=== PATIENT | male | born 1945 | race Caucasian/White ===

== ENCOUNTER 2019-01-29 08:51 | Emergency (ER) | payer MEDICARE, OTHER ==
[~2019-01-29] VITALS: Ht 177.8 cm; Wt 196.0 kg
[~2019-01-29 08:51] MED LIST: ASPI-611 PO; CARV-50 PO; DOCU-28 PO; FLO0.4C PO; HYDR-4353 PO; LISI10TA4 PO; METF500T20 PO; MULT-342 PO; OMEP20CA11 PO; SIMV40TA PO
[2019-01-29 09:40] LABS: BASOPHILS % (AUTO) 0.4 % (0-1); EOSINOPHILS # (AUTO) 0.3 X10'3 (0-0.9); EOSINOPHILS % (AUTO) 3.8 % (0-6); HEMATOCRIT 38.2 % (42.0-52.0); HEMOGLOBIN 12.7 g/dl (14.0-17.9); LYMPHOCYTES # (AUTO) 1.6 X10'3 (1.1-4.8); LYMPHOCYTES % (AUTO) 20.7 % (21-51); MEAN CORPUSCULAR HEMOGLOBIN 31.2 PG (27.0-31.0); MEAN CORPUSCULAR HGB CONC 33.3 g/dL (33.0-36.5); MEAN CORPUSCULAR VOLUME 93.7 FL (78-98); MEAN PLATELET VOLUME 9.4 FL (7.4-10.4); MONOCYTES # (AUTO) 0.8 X10'3 (0-0.9); MONOCYTES % (AUTO) 10.3 % (2-12); NEUTROPHILS # (AUTO) 4.9 X10'3 (1.8-7.7); NEUTROPHILS % (AUTO) 64.8 % (42-75); PLATELET COUNT 179 X10'3 (140-440); RED BLOOD COUNT 4.07 X10'6 (4.70-6.10); RED CELL DISTRIBUTION WIDTH 13.1 % (11.5-14.5); WHITE BLOOD COUNT 7.6 X10'3 (4.5-11.0)
[2019-01-29 09:51] LABS: ALANINE AMINOTRANSFERASE 26 U/L (12-78); ALBUMIN 3.5 G/DL (3.4-5.0); ALBUMIN/GLOBULIN RATIO 0.9 (1.1-1.5); ALKALINE PHOSPHATASE 86 IU/L (46-116); ANION GAP 9 (8-16); ASPARTATE AMINO TRANSFERASE 20 U/L (10-37); BILIRUBIN,TOTAL 0.2 MG/DL (0.1-1.0); BLOOD UREA NITROGEN 20 MG/DL (7-18); BUN/CREATININE RATIO 15.5 (5.4-32.0); CALCIUM 8.3 MG/DL (8.5-10.1); CHLORIDE 107 MMOL/L (99-107); CREATININE 1.29 MG/DL (0.60-1.10); GLUCOSE 142 MG/DL (70-104); POTASSIUM 4.6 MMOL/L (3.5-5.1); SODIUM 142 MMOL/L (135-145); TOTAL CARBON DIOXIDE 26.4 MMOL/L (24-32); TOTAL PROTEIN 7.2 G/DL (6.4-8.2); eGFR 55 ML/MIN
[2019-01-29 09:57] LABS: LIPASE 119 U/L (73-393); MAGNESIUM 1.5 MG/DL (1.5-2.4)
[2019-01-29 10:07] LABS: PARTIAL THROMBOPLASTIN TIME 29 SECONDS (22-32)
[2019-01-29] MEDS ORDERED: furosemide 10 MG/1 ML 10ml inj IV ONE (10:15)
[2019-01-29 11:08] VITALS: BP 149/73
== END 2019-01-29 11:08 | disposition home or self-care (01) ==
LOC: ER 08:52
DX: I50.9 Heart failure, unspecified (principal); I25.10 Atherosclerotic heart disease of native coronary artery without angina pectoris; Z88.5 Allergy status to narcotic agent; Z79.82 Long term (current) use of aspirin; Z79.84 Long term (current) use of oral hypoglycemic drugs; Z79.899 Other long term (current) drug therapy
CPT/HCPCS: 36415; 71045; 80053; 83690; 83735; 83880; 84484; 85025; 85610; 85730; 93005; 96374; 99284; J1940

== ENCOUNTER 2019-04-16 13:15 | Emergency (ER) | payer MEDICARE, OTHER ==
[~2019-04-16] VITALS: Ht 208.3 cm; Wt 88.0 kg
[2019-04-16 14:15] LABS: BASOPHILS % (AUTO) 0.6 % (0-1); EOSINOPHILS # (AUTO) 0.1 X10'3 (0-0.9); EOSINOPHILS % (AUTO) 1.6 % (0-6); HEMATOCRIT 40.6 % (42.0-52.0); HEMOGLOBIN 13.8 g/dl (14.0-17.9); LYMPHOCYTES # (AUTO) 2.1 X10'3 (1.1-4.8); LYMPHOCYTES % (AUTO) 24.2 % (21-51); MEAN CORPUSCULAR HEMOGLOBIN 31.2 PG (27.0-31.0); MEAN CORPUSCULAR HGB CONC 34.1 g/dL (33.0-36.5); MEAN CORPUSCULAR VOLUME 91.4 FL (78-98); MONOCYTES # (AUTO) 0.8 X10'3 (0-0.9); MONOCYTES % (AUTO) 9.1 % (2-12); NEUTROPHILS # (AUTO) 5.7 X10'3 (1.8-7.7); NEUTROPHILS % (AUTO) 64.5 % (42-75); PLATELET COUNT 182 X10'3 (140-440); RED BLOOD COUNT 4.44 X10'6 (4.70-6.10); RED CELL DISTRIBUTION WIDTH 13.1 % (11.5-14.5); WHITE BLOOD COUNT 8.8 X10'3 (4.5-11.0)
--- NOTE | 2019-04-16 14:20 | NUR ---
patient service technician pst at bedside.
[2019-04-16 14:29] LABS: ALANINE AMINOTRANSFERASE 23 U/L (12-78); ALBUMIN 3.7 G/DL (3.4-5.0); ALBUMIN/GLOBULIN RATIO 0.9 (1.1-1.5); ALKALINE PHOSPHATASE 105 IU/L (46-116); ANION GAP 8 (8-16); ASPARTATE AMINO TRANSFERASE 13 U/L (10-37); BILIRUBIN,TOTAL 0.3 MG/DL (0.1-1.0); BLOOD UREA NITROGEN 27 MG/DL (7-18); BUN/CREATININE RATIO 21.8 (5.4-32.0); CALCIUM 8.9 MG/DL (8.5-10.1); CHLORIDE 105 MMOL/L (99-107); CREATININE 1.24 MG/DL (0.60-1.10); GLUCOSE 108 MG/DL (70-104); POTASSIUM 4.5 MMOL/L (3.5-5.1); SODIUM 140 MMOL/L (135-145); TOTAL CARBON DIOXIDE 26.8 MMOL/L (24-32); TOTAL PROTEIN 7.9 G/DL (6.4-8.2); eGFR 57 ML/MIN
[2019-04-16] MEDS ORDERED: normal saline 1000ML IV soln IVB ONE (14:40)
[2019-04-16] MEDS ORDERED: iohexol 350MG/ML 100ml bottle IV ONE (15:03)
[2019-04-16] MEDS ORDERED: iohexol 350 MG/ML 50ML vial IV ONE (15:03)
[2019-04-16] MEDS ORDERED: MESSAGE TO NURSING PO ONE (16:20)
[2019-04-16] MEDS ORDERED: LYR75C PO (18:13)
[2019-04-16 18:19] VITALS: BP 138/81
== END 2019-04-16 18:40 | disposition home or self-care (01) ==
LOC: ER 13:16
DX: I73.9 Peripheral vascular disease, unspecified (principal); G62.9 Polyneuropathy, unspecified; Z88.5 Allergy status to narcotic agent; Z79.82 Long term (current) use of aspirin; Z79.84 Long term (current) use of oral hypoglycemic drugs; Z79.899 Other long term (current) drug therapy
CPT/HCPCS: 36415; 73706; 80053; 85025; 85610; 93922; 93925; 99284; J7030; Q9967

== ENCOUNTER 2019-09-15 10:58 | Inpatient (IN) | payer MEDICARE, OTHER ==
[~2019-09-15] VITALS: Ht 177.8 cm; Wt 86.4 kg
[~2019-09-15 10:58] MED LIST changes: +LYR75C PO; -OMEP20CA11 PO; +OMEP20CA15 PO
--- NOTE | 2019-09-15 11:20 | NUR ---
pt brought in by [facility] for shortness of breath report that they found pt sitting on couch at his home stating 82% on room air reported that he had a cough yesterday ems reported that he had crackles though out his lungs they place him on prortible bipap with peep at 10 at 100% fio2 now stating 97% lung very dimished through out breathing at 30 time a min pt reported that his has been sick too they have been tring to self isolate and only going out when needed
--- NOTE | 2019-09-15 11:44 | NUR ---
pt appears more relaxed now states that it is getting easier to breath lung less demished moving more air crackles heard through out
[2019-09-15 11:48] LABS: BASOPHILS % (AUTO) 0.2 % (0-1); EOSINOPHILS # (AUTO) 0.1 X10'3 (0-0.9); EOSINOPHILS % (AUTO) 0.2 % (0-6); HEMATOCRIT 39.1 % (42.0-52.0); HEMOGLOBIN 12.8 g/dl (14.0-17.9); LYMPHOCYTES # (AUTO) 0.7 X10'3 (1.1-4.8); LYMPHOCYTES % (AUTO) 2.7 % (21-51); MEAN CORPUSCULAR HEMOGLOBIN 30.1 PG (27.0-31.0); MEAN CORPUSCULAR HGB CONC 32.7 g/dL (33.0-36.5); MEAN CORPUSCULAR VOLUME 91.8 FL (78-98); MEAN PLATELET VOLUME 8.7 FL (7.4-10.4); MONOCYTES # (AUTO) 1.6 X10'3 (0-0.9); MONOCYTES % (AUTO) 6.5 % (2-12); NEUTROPHILS # (AUTO) 21.7 X10'3 (1.8-7.7); NEUTROPHILS % (AUTO) 90.4 % (42-75); PLATELET COUNT 200 X10'3 (140-440); RED BLOOD COUNT 4.26 X10'6 (4.70-6.10)
[2019-09-15 12:01] LABS: ALANINE AMINOTRANSFERASE 134 U/L (12-78); ALBUMIN 3.4 G/DL (3.4-5.0); ALBUMIN/GLOBULIN RATIO 0.9 (1.1-1.5); ALKALINE PHOSPHATASE 137 IU/L (46-116); ANION GAP 6 (8-16); ASPARTATE AMINO TRANSFERASE 100 U/L (10-37); BILIRUBIN,TOTAL 0.5 MG/DL (0.1-1.0); BLOOD UREA NITROGEN 24 MG/DL (7-18); BUN/CREATININE RATIO 14.5 (5.4-32.0); CHLORIDE 101 MMOL/L (99-107); CREATININE 1.65 MG/DL (0.60-1.10); GLUCOSE 291 MG/DL (70-104); SODIUM 134 MMOL/L (135-145); TOTAL CARBON DIOXIDE 27.5 MMOL/L (24-32); TOTAL PROTEIN 7.2 G/DL (6.4-8.2); eGFR 41 ML/MIN
[2019-09-15] MEDS ORDERED: DOXYCYCLINE 100MG CAPSULE PO STA (12:06)
[2019-09-15 12:09] LABS: TOTAL CELLS COUNTED 100
[2019-09-15 12:10] LABS: PLATELET ESTIMATE NORMAL
[2019-09-15] MEDS ORDERED: CefTRIAXone 2gm/D5W 50ml 50 ML IV ONE (12:10)
--- NOTE | 2019-09-15 12:30 | NUR ---
pt taken off of [place] bipap and placed on o2 via n/c per request of dr parker. pt holding 96% at 4L
[2019-09-15] MEDS ORDERED: normal saline 1000ML IV soln IV ONE (12:35)
[2019-09-15] MEDS ORDERED: metroNIDAZOLE-Flagyl 500mg/NS 100 ML IV ONE (12:35)
[2019-09-15 13:06] LABS: ABG HCO3 23.8 mmol/L (22.0-26.0); ABG OXYGEN SATURATION 97.3 % (95-98); ABG PCO2 (T) 40.1 mmHg (35.0-45.0); ABG PH (T) 7.391 (7.350-7.450); ABG PO2 (T) 100.3 mmHg (83-108); ALLEN'S TEST POSITIVE; FCOHb 0.1 % (0.5-1.5); FLOW 4 L/min; FMetHb 0.1 % (0.3-1.12); FO2Hb 97.1 % (94-100); TOTAL HEMOGLOBIN 12.6 G/dl (14.0-17.9)
--- NOTE | 2019-09-15 13:13 | NUR ---
in bed resting with eyes closed wakes easy o2 turned down to 2L hotding stats a 95-96%
[2019-09-15] MEDS ORDERED: pantoprazole 40 MG vial IV ONE (13:25)
[2019-09-15] MEDS ORDERED: famotidine/PF 10 mg/ml inj IV ONE (13:25)
[2019-09-15] MEDS ORDERED: insulin regular, human U-100 3ml vial - multi-dose IV ONE (13:50)
[2019-09-15] MEDS ORDERED: calcium chloride 100 MG/1 ML inj IV ONE (13:50)
[2019-09-15] MEDS ORDERED: furosemide 40mg/4ml inj IV ONE (13:50)
[2019-09-15] MEDS ORDERED: sodium bicarbonate (8.4%) 1 mEq/ml syringe IV ONE (13:50)
[2019-09-15] MEDS ORDERED: dextrose 50%-water 50ml dispensing syringe IV ONE (13:50)
[2019-09-15] MEDS ORDERED: sodium bicarbonate (8.4%) inj. 1 MEQ/ML ML IV ONE (14:10)
[2019-09-15] MEDS ORDERED: magnesium 4gm in 100ml NS 100 ML IV PRN (14:25)
[2019-09-15] MEDS ORDERED: acetaminophen 325mg tablet PO PRN ×2 (14:25)
[2019-09-15] MEDS ORDERED: potassium Cl 20 mEq SR tablet PO PRN ×2 (14:25)
[2019-09-15] MEDS ORDERED: mag hydrox/Alum hydrox/simeth 30ml oral suspension PO PRN (14:25)
[2019-09-15] MEDS ORDERED: potassium CL 10mEq/100ml bag 100 ML IV PRN ×2 (14:25)
[2019-09-15] MEDS ORDERED: magnesium Cl slow-release 64mg tablet PO PRN (14:25)
[2019-09-15] MEDS ORDERED: ondansetron/PF 4mg/2ml inj IV PRN (14:25)
[2019-09-15] MEDS ORDERED: magnesium 2GM in 50ml NS 50 ML IV PRN (14:25)
[2019-09-15] MEDS ORDERED: MESSAGE TO PHARMACY PO ONE (14:40)
[2019-09-15] MEDS ORDERED: dextrose ORAL solution 15 GM/59 ML bottle PO PRN ×2 (14:40)
[2019-09-15] MEDS ORDERED: dextrose 50%-water 50ml dispensing syringe IV PRN ×2 (14:40)
[2019-09-15] MEDS ORDERED: glucagon, human recombinant 1mg kit SUBCUT PRN (14:40)
[2019-09-15] MEDS ORDERED: insulin Lispro (HumaLOG) vial - multi-dose SQ SCH (14:40)
[2019-09-15 14:56] LABS: HEMOGLOBIN A1C 6.7 % (4.5-6.2)
[2019-09-15] MEDS: normal saline 1000ml 1,000 ML IV SCH (15:29)
[2019-09-15] MEDS ORDERED: VANCOmycin 1250MG/NS 250ml Bag 250 ML IV SCH (16:00)
--- NOTE | 2019-09-15 16:13 | NUR ---
Patient in room ED 3. I have received report from Shoaib SPENCE and had the opportunity to ask questions and assume patient care. Awaiting patient's arrival to the unit.
--- NOTE | 2019-09-15 17:30 | NUR ---
Page sent to Dr. Salinas: PAGER ID: [phone] MESSAGE: [phone] Damien Vergara: The patient's daughter would like to speak with you about the patient's status. Thank you, Daly [phone]
[2019-09-15 18:00] VITALS: BP 99/55
--- NOTE | 2019-09-15 18:20 | NUR ---
Problems reprioritized. Patient report given, questions answered & plan of care reviewed with Berenice SPENCE.
[2019-09-15] MEDS ORDERED: SODIUM ZIRCONIUM CYCLOSILICATE 10 GM POWD.PACK PO ONE (18:35)
--- NOTE | 2019-09-15 18:38 | NUR ---
Patient in room PCU 3010. I have received report from JORDY Cordero and had the opportunity to ask questions and assume patient care. Addendum: 09/15/19 at 1839 by Elysia Milan RN Amended: Links added.
[2019-09-15] MEDS: piperacillin/tazo 3.375gm/50ml 50 ML IV SCH (19:24)
[2019-09-15] MEDS: K and/or MAG REPLACEMENT MC SCH (20:00)
[2019-09-15] MEDS ORDERED: insulin glargine (Lantus) pen - multi-dose SQ SCH (21:00)
[2019-09-15] MEDS ORDERED: temazepam 15mg capsule PO PRN (21:00)
[2019-09-15] MEDS: docusate sod 100mg capsule PO SCH (21:14)
[2019-09-15] MEDS: pregabalin 75mg capsule PO SCH (21:14)
[2019-09-15] MEDS: heparin, porcine 5000 units/ml vial SQ SCH (21:15)
[2019-09-15 22:00] VITALS: BP_SYST 111; BP_SYST 99; BP_DIAS 54; BP_DIAS 55
[2019-09-16] MEDS: piperacillin/tazo 3.375gm/50ml 50 ML IV SCH ×2 (00:28→08:06)
[2019-09-16 02:00] VITALS: BP 108/60
[2019-09-16 05:31] LABS: ALANINE AMINOTRANSFERASE 83 U/L (12-78); ALBUMIN 2.8 G/DL (3.4-5.0); ALBUMIN/GLOBULIN RATIO 0.8 (1.1-1.5); ALKALINE PHOSPHATASE 92 IU/L (46-116); ANION GAP 5 (8-16); ASPARTATE AMINO TRANSFERASE 40 U/L (10-37); BILIRUBIN,TOTAL 0.5 MG/DL (0.1-1.0); BLOOD UREA NITROGEN 24 MG/DL (7-18); BUN/CREATININE RATIO 15.5 (5.4-32.0); CALCIUM 8.1 MG/DL (8.5-10.1); CHLORIDE 105 MMOL/L (99-107); CREATININE 1.55 MG/DL (0.60-1.10); GLUCOSE 105 MG/DL (70-104); MAGNESIUM 1.5 MG/DL (1.5-2.4); POTASSIUM 4.1 MMOL/L (3.5-5.1); SODIUM 142 MMOL/L (135-145); TOTAL PROTEIN 6.1 G/DL (6.4-8.2); eGFR 44 ML/MIN
[2019-09-16 05:34] LABS: BASOPHILS % (AUTO) 0.2 % (0-1); EOSINOPHILS # (AUTO) 0.2 X10'3 (0-0.9); HEMATOCRIT 31.8 % (42.0-52.0); HEMOGLOBIN 10.7 g/dl (14.0-17.9); LYMPHOCYTES # (AUTO) 1.8 X10'3 (1.1-4.8); LYMPHOCYTES % (AUTO) 17.4 % (21-51); MEAN CORPUSCULAR HEMOGLOBIN 30.6 PG (27.0-31.0); MEAN CORPUSCULAR HGB CONC 33.6 g/dL (33.0-36.5); MEAN CORPUSCULAR VOLUME 91.2 FL (78-98); MEAN PLATELET VOLUME 9.3 FL (7.4-10.4); MONOCYTES # (AUTO) 1.4 X10'3 (0-0.9); NEUTROPHILS # (AUTO) 7.1 X10'3 (1.8-7.7); NEUTROPHILS % (AUTO) 67.4 % (42-75); PLATELET COUNT 148 X10'3 (140-440); RED BLOOD COUNT 3.49 X10'6 (4.70-6.10); RED CELL DISTRIBUTION WIDTH 14.1 % (11.5-14.5); WHITE BLOOD COUNT 10.6 X10'3 (4.5-11.0)
--- NOTE | 2019-09-16 06:08 | NUR ---
Problems reprioritized. Patient report given, questions answered & plan of care reviewed with JORDY Collier.
--- NOTE | 2019-09-16 06:54 | NUR ---
Patient in room PCU 3010. I have received report from Berenice Ronquillo RN and had the opportunity to ask questions and assume patient care.Patient resting in bed in no distress. Will continue to monitor.
[2019-09-16 07:00] VITALS: BP 98/53
[2019-09-16] MEDS ORDERED: pantoprazole 40mg Tablet.DR PO SCH (08:00)
[2019-09-16] MEDS ORDERED: atorvastatin 20mg tablet PO SCH (08:00)
[2019-09-16] MEDS ORDERED: aspirin 81mg tab.chew PO SCH (08:00)
[2019-09-16] MEDS ORDERED: tamsulosin 0.4mg capsule PO SCH (08:00)
[2019-09-16] MEDS: heparin, porcine 5000 units/ml vial SQ SCH (08:06)
[2019-09-16] MEDS: pregabalin 75mg capsule PO SCH (08:06)
[2019-09-16] MEDS: docusate sod 100mg capsule PO SCH (08:08)
[2019-09-16] MEDS: K and/or MAG REPLACEMENT MC SCH (08:31)
[2019-09-16] MEDS: normal saline 1000ml 1,000 ML IV SCH (10:22)
[2019-09-16 11:00] VITALS: BP 139/81
[2019-09-16] MEDS ORDERED: AMOX-580 PO (11:44)
--- NOTE | 2019-09-16 13:00 | NUR ---
Patient is stable for discharge per MD's orders. All discharge instructions reviewed with patient and all questions answered. New prescriptions sent with patient. PIV discontinued, cannula intact. potline monitor discontinued. Belongings collected and sent with patient. Being picked up in private vehicle from his , wheeled to lobby by patient child care associate teacher.
[2019-09-18] MEDS ORDERED: VANCOMYCIN LEVEL IV ONE (15:30)
== END 2019-09-16 13:00 | disposition home or self-care (01) | DRG 871 ==
LOC: ER 10:58 → ED HOLD 14:22 → PCU 3S 16:55
PROVIDERS: ADMIT Internal Medicine; ATTEND Family Medicine
PROC: 5A09357 Assistance with Respiratory Ventilation, Less than 24 Consecutive Hours, Continuous Positive Airway Pressure (ICD-10-PCS; principal; 2019-09-15)
DX: A41.9 Sepsis, unspecified organism (principal); J69.0 Pneumonitis due to inhalation of food and vomit; E87.1 Hypo-osmolality and hyponatremia; I50.20 Unspecified systolic (congestive) heart failure; E87.5 Hyperkalemia; E11.22 Type 2 diabetes mellitus with diabetic chronic kidney disease; I95.9 Hypotension, unspecified; R06.03 Acute respiratory distress; R74.0 Nonspecific elevation of levels of transaminase and lactic acid dehydrogenase [LDH]; I25.10 Atherosclerotic heart disease of native coronary artery without angina pectoris; R94.5 Abnormal results of liver function studies; K21.9 Gastro-esophageal reflux disease without esophagitis; N18.2 Chronic kidney disease, stage 2 (mild); R09.02 Hypoxemia; Z79.84 Long term (current) use of oral hypoglycemic drugs; Z95.1 Presence of aortocoronary bypass graft; Z88.5 Allergy status to narcotic agent; Z82.49 Family history of ischemic heart disease and other diseases of the circulatory system; Z83.3 Family history of diabetes mellitus; Z95.0 Presence of cardiac pacemaker; Z79.899 Other long term (current) drug therapy; Z79.82 Long term (current) use of aspirin
CPT/HCPCS: 36415; 36600; 71045; 80053; 82803; 82948; 83036; 83605; 83735; 83880; 84145; 85018; 85025; 87040; 87081; 93306; 96365; 97116; 97161; 99285; C9113; G0378; J0696; J1644; J1815; J1940; J2543; J3370; J3490; J7030